=== PATIENT | female | born 1965 | race Caucasian/White ===

== ENCOUNTER 2019-02-21 16:10 | Emergency (ER) | payer OTHER ==
[~2019-02-21] VITALS: Ht 165.1 cm; Wt 75.0 kg
[2019-02-21 16:17] VITALS: BP 124/83; PULSE 108; RESP 18; Ht 165.1 cm; Wt 75.0 kg
[2019-02-21] MEDS ORDERED: IBUPROFEN 800 MG TAB PO ONE (16:30)
[2019-02-21] MEDS ORDERED: LIDOCAINE 2%/EPI MPF (SDV) 20 ML VIAL INJ STA (17:54)
[2019-02-21] MEDS ORDERED: SODIUM CHLORIDE 0.9% 1L IRRIG IRR STA (17:54)
[2019-02-21] MEDS ORDERED: IBUP-1542 PO (18:49)
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
== END 2019-02-21 19:25 | disposition home or self-care (01) ==
LOC: FTE 16:10
DX: S01.01XA Laceration without foreign body of scalp, initial encounter (principal); I10 Essential (primary) hypertension; Y04.8XXA Assault by other bodily force, initial encounter; Y92.9 Unspecified place or not applicable
CPT/HCPCS: 12001; 70450; 73130; A4217; Z7502; Z7610

== ENCOUNTER 2019-07-09 19:19 | Emergency (ER) | payer SELFPAY ==
[~2019-07-09] VITALS: Ht 167.6 cm; Wt 86.9 kg
[~2019-07-09 19:19] MED LIST: IBUP-1542 PO
[2019-07-09 19:24] VITALS: BP 148/80; PULSE 87; RESP 16; Ht 167.6 cm; Wt 86.9 kg
== END 2019-07-09 21:24 | disposition left against medical advice (07) ==
LOC: E/R 19:19
DX: Z53.21 Procedure and treatment not carried out due to patient leaving prior to being seen by health care provider (principal)